=== PATIENT | male | born 1955 | race Caucasian/White ===

== ENCOUNTER 2018-09-29 11:40 | Emergency (ER) | payer MEDICARE, BC ==
[~2018-09-29] VITALS: Ht 162.6 cm; Wt 61.7 kg
[2018-09-29 11:40] VITALS: BP 142/77
--- NOTE | 2018-09-29 12:35 | NUR ---
DR RAJAN AT BEDSIDE FOR EVAL.
--- NOTE | 2018-09-29 12:53 | NUR ---
Patient discharged to home in stable condition. Written and verbal after care instructions given. Patient verbalizes understanding of instruction.
== END 2018-09-29 12:50 | disposition home or self-care (01) ==
LOC: ER 11:41
DX: K04.7 Periapical abscess without sinus (principal); R42 Dizziness and giddiness
CPT/HCPCS: 99283; A4606; Z7502